=== PATIENT | female | born 1935 | race Hispanic/Latino ===

== ENCOUNTER 2017-07-14 20:46 | Emergency (ER) | payer MEDICARE ==
[~2017-07-14 20:46] MED LIST: ACET1TAB23 PO; ACET325T51 PO; DICY10 PO; DIPH25CA85 PO; DOCU-116 PO; DONE5TAB2 PO; ENAL10TA PO; ENAL2.5T PO; FOLI0.8T22 PO; FOLI1TAB15 PO; GABA-529 PO; LACTULOSE PO; MOM30 PO; ONDA4TAB4 PO; OXCA150T17 PO; PANT20TA12 PO; PHOSLOC PO; POLY17PO4 PO; SUCR1TAB28 PO; TRAMADOL PO
[2017-07-14] MEDS ORDERED: SODIUM CHLORIDE 0.9% 250 ML IV ONE (22:14)
[2017-07-14] MEDS ORDERED: HYDROCODONE/ACETAMINOPHEN 10/325 MG TAB ONE (22:23)
[2017-07-14] MEDS ORDERED: DiphenhydrAMINE HCL 50 MG/ML VIAL ONE (22:23)
[2017-07-14 22:59] LABS: BASOPHILS % (AUTO) 0.8 % (0.0-5.0); EOSINOPHILS % (AUTO) 6.1 % (0.0-8.0); HEMATOCRIT 28.6 % (36-48); LYMPHOCYTES % (AUTO) 22.3 % (21.0-51.0); MEAN CORPUSCULAR HEMOGLOBIN 33.7 pg (27.0-33.0); MEAN CORPUSCULAR HGB CONC 34.3 g/dL (32.0-36.0); MEAN CORPUSCULAR VOLUME 98.3 fL (79-99); MONOCYTES % (AUTO) 10.6 % (3.0-13.0); NEUTROPHILS % (AUTO) 60.2 % (40.0-77.0); NUCLEATED RED BLOOD CELLS 0.1 % (0.0-0.19); PLATELET COUNT (AUTO) 260 K/uL (130-400); RED BLOOD CELL COUNT(AUTO) 2.91 MIL/uL (4.00-5.50); RED CELL DISTRIBUTION WIDTH 15.8 % (11.0-15.5); WHITE BLOOD COUNT (AUTO) 7.7 K/uL (4.8-10.8)
[2017-07-14 23:11] LABS: CREATININE 3.6 mg/dL (0.5-1.5); POTASSIUM 3.6 mmol/L (3.5-5.1)
[2017-07-14 23:16] LABS: ALBUMIN 2.7 g/dL (3.5-5.0); BILIRUBIN,TOTAL 0.8 mg/dL (0.2-1.0); TOTAL PROTEIN, SERUM 6.6 g/dL (6.0-8.3)
[2017-07-15 00:11] LABS: ERYTHROCYTE SEDIMENTATION RATE 89 MM/HR (0-15)
== END 2017-07-15 05:36 | disposition home or self-care (01) ==
LOC: EDH 20:46
DX: J10.1 Influenza due to other identified influenza virus with other respiratory manifestations (principal); M79.1 Myalgia; M25.50 Pain in unspecified joint; I12.0 Hypertensive chronic kidney disease with stage 5 chronic kidney disease or end stage renal disease; E11.22 Type 2 diabetes mellitus with diabetic chronic kidney disease; N18.6 End stage renal disease; E78.5 Hyperlipidemia, unspecified; I95.9 Hypotension, unspecified; K21.9 Gastro-esophageal reflux disease without esophagitis; Z99.2 Dependence on renal dialysis; Z88.6 Allergy status to analgesic agent
CPT/HCPCS: 36415; 71045; 80053; 85025; 85651; 87804 ×2; 93005; 96360; 96372; 99285; J1200; J7030

== ENCOUNTER 2018-08-19 10:28 | Inpatient (IN) | payer MEDICARE | END 2018-08-22 15:15 | disposition EXP | LOC: EDH 10:28 → 2CH 08-20 18:35 → EDHIP 13:56 → 3CH 17:16 → 2BH 19:39 | DX: A41.9 Sepsis, unspecified organism (principal); I46.9 Cardiac arrest, cause unspecified; J18.9 Pneumonia, unspecified organism; J80 Acute respiratory distress syndrome; J96.01 Acute respiratory failure with hypoxia; J96.02 Acute respiratory failure with hypercapnia; N18.6 End stage renal disease; R65.21 Severe sepsis with septic shock; E87.2 Acidosis; G93.40 Encephalopathy, unspecified; I12.0 Hypertensive chronic kidney disease with stage 5 chronic kidney disease or end stage renal disease; J44.0 Chronic obstructive pulmonary disease with (acute) lower respiratory infection; E87.70 Fluid overload, unspecified ==